=== PATIENT | female | born 1995 | race Caucasian/White ===

== ENCOUNTER 2018-12-07 16:56 | Emergency (ER) | payer SELFPAY ==
[~2018-12-07] VITALS: Ht 165.1 cm; Wt 77.6 kg
[2018-12-07 17:06] VITALS: Ht 165.1 cm; Wt 77.6 kg
[2018-12-07 17:50] VITALS: BP 137/84
== END 2018-12-07 17:50 | disposition home or self-care (01) ==
LOC: ED 16:56
DX: R42 Dizziness and giddiness (principal); R41.3 Other amnesia